=== PATIENT | female | born 1985 | race Caucasian/White ===

== ENCOUNTER 2017-02-05 22:57 | Emergency (ER) | payer SELFPAY ==
[~2017-02-05] VITALS: Ht 165.1 cm; Wt 63.6 kg
[~2017-02-05 22:57] MED LIST: AMOXICILLIN500 M1 PO; BACTRIM,SEPT1 TABLET PO; CIPRO500 MG PO; FLAGYL500 MG PO; FLEXERIL10 MG PO; FLONASE16 G1 BOTH NARES; GUAIFENESIN600 M1 PO; IBUPROFEN600 MG PO; KEFLEX500 MG PO; LEVAQUIN750 MG PO; MACROBID100 MG PO; MOTRIN600 MG PO; NAPROSYN500 MG PO; PYRIDIUM100 MG PO; TESSALON PERLE100 MG PO; ULTRAM50 MG PO; ZITHROMAX250 MG PO; ZOFRAN4 MG PO
[2017-02-05 23:27] LABS: HEMATOCRIT 39.9 % (36.0-46.0); MCH 31.6 PG (29.0-34.0); MCHC 34.1 G/DL (30.0-36.0); MCV 92.6 FL (83-99); MEAN PLAT.VOLUME 9.6 uM^3 (9.5-12.4); PLATELET COUNT 191 K/uL (156-360); RBC DIS.WIDTH-CV 11.3 % (11.8-14.6); RBC DIS.WIDTH-SD 38.6 % (39-53); RED BLOOD COUNT 4.31 M/uL (3.80-5.20); WHITE BLOOD COUNT 6.8 K/uL (4.1-10.2)
[2017-02-05 23:38] LABS: CHLORIDE 106 mEq/L (99-109); POTASSIUM 3.7 mEq/L (3.7-5.4); SODIUM 139 mEq/L (136-147)
[2017-02-05 23:40] LABS: GLUCOSE 80 mg/dL (70-99)
[2017-02-05 23:41] LABS: ANION GAP 6 MEQ/L (2-14)
[2017-02-05 23:44] LABS: GFR ESTIMATE (CALCULATED) > 59 mL/min/
[2017-02-05 23:45] LABS: UREA NITROGEN (BUN) 15 mg/dL (9-23)
[2017-02-05 23:48] LABS: TROP-I INTERPRETATION NEGATIVE; TROPONIN-I < 0.01 ng/mL (0.0-0.30)
[2017-02-06 00:12] LABS: QUANTITATIVE HCG < 4.0 MIU/ML
[2017-02-06 00:43] LABS: ADD MIUA? YES; BILIRUBIN NEGATIVE; BLOOD SMALL; COLOR YELLOW ((YELLOW)); GLUCOSE (STRIP) NEGATIVE; KETONES NEGATIVE; LEUKOCYTES NEGATIVE; NITRITE NEGATIVE; PROTEIN (STRIP) NEGATIVE; SPECIFIC GRAVITY 1.013 (1.000-1.030); UROBILINOGEN 0.2 MG/DL (0.2-1.0)
[2017-02-06 00:46] LABS: BACTERIA NONE SEEN /HPF; EPITHELIAL CELLS RARE /HPF; MUCUS TRACE /LPF; RED BLOOD CELLS 0-5 /HPF (0-5); UCUL ADDED? NO; WHITE BLOOD CELLS 0-5 /HPF (0-5)
[2017-02-06] MEDS ORDERED: NAPROXEN500 MG PO (01:33)
[2017-02-06 02:16] VITALS: BP 123/77
== END 2017-02-06 02:17 | disposition home or self-care (01) ==
LOC: EME 22:57 → EXP 22:57
PROVIDERS: Physician Assistant
DX: M62.830 Muscle spasm of back (principal); M94.0 Chondrocostal junction syndrome [Tietze]; F17.200 Nicotine dependence, unspecified, uncomplicated
CPT/HCPCS: 71020; 80048; 81003; 84484; 84702; 85027; 93005; 99281; 99284; J8540

== ENCOUNTER 2017-08-22 21:05 | Emergency (ER) | payer SELFPAY ==
[~2017-08-22] VITALS: Ht 165.1 cm; Wt 66.5 kg
[~2017-08-22 21:05] MED LIST changes: +NAPROXEN500 MG PO
[2017-08-22 21:07] VITALS: BP 136/85
[2017-08-22 21:35] LABS: HEMATOCRIT 42.1 % (36.0-46.0); HEMOGLOBIN 14.8 G/DL (11.9-15.5); MCHC 35.2 G/DL (30.0-36.0); MCV 91.1 FL (83-99); PLATELET COUNT 161 K/uL (156-360); RBC DIS.WIDTH-CV 11.4 % (11.8-14.6); RBC DIS.WIDTH-SD 37.9 % (39-53); RED BLOOD COUNT 4.62 M/uL (3.80-5.20); WHITE BLOOD COUNT 6.7 K/uL (4.1-10.2)
[2017-08-22 21:43] LABS: ALBUMIN 4.6 g/dL (3.2-4.8)
[2017-08-22 21:44] LABS: CHLORIDE 105 mEq/L (99-109); POTASSIUM 3.5 mEq/L (3.7-5.4); SODIUM 138 mEq/L (136-147)
[2017-08-22 21:46] LABS: GLUCOSE 108 mg/dL (70-99); TOTAL PROTEIN 7.3 g/dL (6.4-8.3)
[2017-08-22 21:48] LABS: TOTAL BILIRUBIN 1.1 mg/dL (0.0-1.0)
[2017-08-22 21:49] LABS: ALKALINE PHOSPHATASE 47 IU/L (3-129); CREATININE 0.8 mg/dL (0.6-1.3); GFR ESTIMATE (CALCULATED) > 59 mL/min/
[2017-08-22 21:51] LABS: AST (GOT) 28 IU/L (2-34); UREA NITROGEN (BUN) 18 mg/dL (9-23)
[2017-08-22 21:52] LABS: ALT (GPT) 31 IU/L (3-49)
[2017-08-22 21:59] LABS: QUANTITATIVE HCG < 4.0 MIU/ML
== END 2017-08-22 22:42 | disposition left against medical advice (07) ==
LOC: EME 21:05
DX: R68.89 Other general symptoms and signs (principal); Z53.21 Procedure and treatment not carried out due to patient leaving prior to being seen by health care provider
CPT/HCPCS: 80053; 81003; 84702; 85027

== ENCOUNTER 2018-03-08 11:13 | Emergency (ER) | payer OTHER ==
[~2018-03-08] VITALS: Ht 165.1 cm; Wt 69.0 kg
[2018-03-08 12:10] LABS: APPEARANCE SL.HAZY ((CLEAR)); BILIRUBIN NEGATIVE; BLOOD LARGE; COLOR YELLOW ((YELLOW)); GLUCOSE (STRIP) NEGATIVE; KETONES NEGATIVE; LEUKOCYTES LARGE; NITRITE NEGATIVE; PROTEIN (STRIP) 30; SPECIFIC GRAVITY 1.009 (1.000-1.030); UROBILINOGEN 0.2 MG/DL (0.2-1.0)
[2018-03-08 12:23] LABS: EPITHELIAL CELLS 1+ /HPF
[2018-03-08 12:24] LABS: MUCUS NONE SEEN /LPF; RED BLOOD CELLS 15-20 /HPF (0-5); WHITE BLOOD CELLS TNTC /HPF (0-5)
[2018-03-08 12:25] LABS: BACTERIA RARE /HPF; UCUL ADDED? YES
[2018-03-08] MEDS ORDERED: KEFLEX500 MG PO (12:52)
[2018-03-08] MEDS ORDERED: MOBIC7.5 MG PO (12:52)
[2018-03-08 13:13] VITALS: BP 110/80
== END 2018-03-08 13:13 | disposition home or self-care (01) ==
LOC: EME 11:13
PROVIDERS: Nurse Practitioner Family
DX: N39.0 Urinary tract infection, site not specified (principal); S49.92XA Unspecified injury of left shoulder and upper arm, initial encounter; F17.200 Nicotine dependence, unspecified, uncomplicated; Z90.49 Acquired absence of other specified parts of digestive tract
CPT/HCPCS: 73030; 81003; 81025; 87086; 99281; 99283